=== PATIENT | male | born 1930 | race Caucasian/White ===

== ENCOUNTER → 2016-08-06 | Outpatient (CLI) | payer MEDICARE ==
[~2016-08-06] MED LIST: ALEVE 220MG220 MG PO; COSAMIN DS 4001 CA1 PO; LAXATIVE POWDER; MULTI VITAMINS1 TAB PO; OSCAL 500 TAB500 MG; PERCOCET 325 MG1 TA2 PO; PHENERGAN 25 TA25 MG PO; SENNA8.6 MG PO; SYNTHROID0.125 MG/T PO; TYLENOL 500MG500 MG PO; ZOFRAN 4MG T4 MG/TAB; ZOVIRAX 200MG200 MG PO
== END ==
LOC: COL.RAD 07:10
DX: M47.814 Spondylosis without myelopathy or radiculopathy, thoracic region (principal); M48.04 Spinal stenosis, thoracic region; M89.8X8 Other specified disorders of bone, other site
CPT/HCPCS: A9585

== ENCOUNTER → 2016-08-28 | Outpatient (CLI) | payer MEDICARE ==
[2016-08-28 10:48] LABS: BASO # 0.1 (0.0-0.2); BASO % 0.7 % (0.0-2.0); EOS # 2.1 (0.0-0.7); EOS % 28.1 % (0-4.0); GRAN # 3.6 (1.4-6.5); GRAN % 47.4 % (42.2-75.2); HEMOGLOBIN 12.1 g/dl (13.5-18.0); LYMPH # 1.2 (1.2-3.4); LYMPH % 15.7 % (20.0-51.0); MEAN CELL VOLUME 101 fl (80.0-100.0); MEAN CORPUSCULAR HEMOGLOBIN 34 pg (27.0-31.0); MEAN CORPUSCULAR HGB CONC 33 g/dl (33.0-37.0); MEAN PLATELET VOLUME 10.2 fl (7.4-10.4); MONO # 0.6 (0.1-0.6); MONO % 7.7 % (1.7-9.3); PLATELET COUNT 215 K/mm3 (130-400); RED BLOOD COUNT 3.59 M/mm3 (4.20-5.60); WHITE BLOOD COUNT 7.5 K/mm3 (4.8-10.8)
[2016-08-28 10:56] LABS: HEMATOCRIT 36.2 % (42.0-52.0)
[2016-08-28 10:58] LABS: PH 5 (5-8); SQUAMOUS EPITHELIAL None Seen /hpf; URINE APPEARANCE Clear; URINE BACTERIA None Seen /hpf; URINE BILIRUBIN Negative (NEGATIVE); URINE BLOOD Negative (NEGATIVE); URINE COLOR Yellow; URINE GLUCOSE Negative (NEGATIVE); URINE KETONE Negative (NEGATIVE); URINE RBC 0-2 /hpf; URINE UROBILINOGEN Negative (NEGATIVE); URINE WBC 0-2 /hpf
[2016-08-28 11:02] LABS: ALBUMIN 3.7 gm/dL (3.5-5.0); BILIRUBIN,TOTAL 0.4 mg/dL (0.0-1.0); CALCIUM 8.8 mg/dL (8.4-10.2); CREATININE, serum 1.17 mg/dL (0.66-1.25); TOTAL PROTEIN 6.6 gm/dL (6.4-8.2)
== END ==
LOC: COL.LAB 09:47
PROVIDERS: Internal Medicine
DX: C90.00 Multiple myeloma not having achieved remission (principal)